=== PATIENT | male | born 1945 | race Caucasian/White ===

== ENCOUNTER 2017-08-07 11:43 | Day surgery (SDC) | payer MEDICARE, BC ==
[~2017-08-07] VITALS: Ht 190.5 cm; Wt 95.9 kg
[~2017-08-07 11:43] MED LIST: ALLO100T PO; ASPI81TA52 PO; CARV25TA PO; FOLI0.4T2 PO; FURO40TA4 PO; LEVO100T PO; LOSA25TA96 PO; MAGN400C PO; MECL12.584 PO; METF500T PO; MULT-1179 PO; NIAC1TBM27 PO; PANT-47 PO; SPIR25TA3 PO
[2017-08-07] MEDS ORDERED: LEVO75TA7 PO (11:57)
[2017-08-07] MEDS ORDERED: SIMV20TA5 PO (11:59)
[2017-08-07 12:00] VITALS: BP 139/69
[2017-08-07] MEDS ORDERED: FERR134T2 PO (12:01)
[2017-08-07] MEDS ORDERED: fentaNYL/PF 50MCG/1 ML 2ML syringe ONE (12:07)
[2017-08-07] MEDS ORDERED: MIDAZolam 5mg/5ml vial ONE (12:07)
[2017-08-07 13:10] VITALS: BP 122/63
[2017-08-07 13:20] VITALS: BP 129/65
[2017-08-07 13:30] VITALS: BP 131/69
== END 2017-08-07 13:52 | disposition home or self-care (01) ==
LOC: GI LAB 11:43
PROVIDERS: ATTEND Internal Medicine Gastroenterology
DX: D12.6 Benign neoplasm of colon, unspecified (principal); D13.39 Benign neoplasm of other parts of small intestine; K57.30 Diverticulosis of large intestine without perforation or abscess without bleeding; E78.5 Hyperlipidemia, unspecified; K21.9 Gastro-esophageal reflux disease without esophagitis; E11.9 Type 2 diabetes mellitus without complications; I25.10 Atherosclerotic heart disease of native coronary artery without angina pectoris; I10 Essential (primary) hypertension; Z72.89 Other problems related to lifestyle; Z86.74 Personal history of sudden cardiac arrest; Z95.810 Presence of automatic (implantable) cardiac defibrillator; Z95.1 Presence of aortocoronary bypass graft; Z79.82 Long term (current) use of aspirin; Z79.84 Long term (current) use of oral hypoglycemic drugs; Z79.899 Other long term (current) drug therapy
CPT/HCPCS: 45380; G0500; J2250; J3010; J7030; 88305; A4620